=== PATIENT | female | born 1980 | race Caucasian/White ===

== ENCOUNTER 2025-03-19 09:13 | Outpatient (RCR) | payer MEDICARE, MEDICAID, SELFPAY ==
--- NOTE | 2025-03-19 09:05 | BH.SGPN.GN ---
Behaviors/Verbalizations/Mental Status: [] Pt alert and oriented, neatly dressed and groomed. Eye contact good. Motor activity appropriate. Speech within normal limits. Affect labile-quick to tears and laughter, mood depressed and agitated. Thoughts linear, logical, no signs of hallucinations or delusions. Reviewed pt?s symptom tracker, no risk for suicidal ideation, plan, or intent 03/19/25. Client Response/Progress/Benefit: []Pt was an active participant in group discussions. Attentive. Able to identify mental health wins including showing up to IOP today even though she was reluctant at first. Pt stated that she had to trust her family, but that has been challenging lately. ?Pt's stressor today is ?so much has happened to me lately? which includes the loss of her mother and recent manic episode. The group offered pt encouragement and emotional support which pt reported was helpful. Pt is feeling stressed? this morning. Pt receptive to feedback from peers which pt reported was helpful. Progress noted. Benefited from group support, encouragement, and feedback. Will continue IOP tx to prevent decompensation, improve daily functioning, and gain healthy coping skills. ??? Narrative Note: []
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
--- NOTE | 2025-03-19 10:31 | BH.DR.ITP ---
Initial Treatment Plan Patient Information Visit Information: ADMISSION DATE: EXPECTED LOS: 6-8 weeks Diagnoses:: Bipolar 1, hx ptsd Problems/Symptoms Problem #1:: Bipolar disorder Symptom:: restless with decreased need for sleep, flight of ideas, easily distracted with difficult concentration, and risky behaviors like reckless driving Problem #2:: Hx PTSD Symptom:: historical, denies current nightmares or flashbacks
[2025-03-19 10:57] VITALS: BP 122/83; PULSE 68
--- NOTE | 2025-03-19 14:33 | BH.MTP ---
Master Treatment Plan Patient Information Program Physician:: Dr. Kitty Johnson Primary Therapist:: FABIAN Hunter Psychiatric Diagnoses Psychiatric Diagnoses:: Diagnosis #1:: Bipolar disorder, current episode manic without psychotic features, unspeci Diagnosis #2:: PTSD Diagnosis Code(s):: F31.1 Estimated LOS Estimated LOS (in weeks):: 6 Problem/Goal #1 Problem/Goal #1 Stated Goal:: Achieve controlled behavior, moderated mood, more deliberative speech and thought process, and a stable daily activity pattern. Client will also increase mood stability, reduce depression AEB self-report and reduction of scores of the bipolar and depression domain on the DSM-5 cross-cutting scales. Description of Barriers: hx of non-compliance with medications for bipolar, stigma associated with Bipolar diagnosis. Hx of self-medication through alcohol and marijuana. Functional Impact: Recent manic episode led to inpatient hospitalization and residing with father now Goal Relevant Strengths/Supports: Motivated to make changes to return to independent living Objectives Objective #1: Stated Objective: Client will increase self-awareness of bipolar illness through education from individual therapist as well as educational handouts. Interventions: Through individual and group counseling will provide education on criteria for Bipolar, define yazmin/hypomania, identify warning signs to yazmin, and develop an individualized and written Bipolar management plan for patient Discharge Criteria: Complete Bipolar management plan. Target Date: 05/03/25 Review Date: 04/18/25 Objective #2: Stated Objective: Client will identify at least 2-3 negative self-talk messages used to reinforce negative core beliefs and low self-worth and replace thoughts with more realistic messages. Interventions: Through individual and group counseling will assist client in identifying, challenging, and replacing dysfunctional thoughts with positive, more realistic thoughts. Therapist will use CBT and DBT techniques to help client gain awareness of thinking errors and learn how to more effectively handle negative thoughts that reinforce unhealthy coping skills Discharge Criteria: Will be able to identify 2-3 negative self-talk messages and identify 2 strategies to reframe/challenge these thoughts. Target Date: 05/03/25 Review Date: 04/18/25 Problem/Goal #2 Problem/Goal #2 Stated Goal:: Stabilize anxiety level while increasing ability to function on a daily basis AEB self-report and decreased scores on the anxiety domain of the DSM-5 cross-cutting scales Description of Barriers: hx of non-compliance with medications for bipolar, stigma associated with Bipolar diagnosis. Hx of self-medication through alcohol and marijuana. Functional Impact: Recent manic episode led to inpatient hospitalization and residing with father now Goal Relevant Strengths/Supports: Motivated to make changes and return to independent living Objectives Objective #1: Stated Objective: Client will learn and implement 4-5 calming skills to reduce overall anxiety and manage anxiety. Interventions: Through individual and group counseling will help client increase awareness of anxiety triggers as well as teach client various calming and mindfulness strategies to promote emotional regulation and reduction of anxiety. Therapist will encourage client to implement/practice healthy coping skills on a regular basis Discharge Criteria: Able to identify and consistently implement 4-5 calming skills. Target Date: 05/03/25 Review Date: 04/18/25
--- NOTE | 2025-03-19 14:34 | BH.COMM_ITS ---
Communication Note Communication with Client Communication Note: Met with pt to complete paperwork, update any changes to pre-admission screening, and complete risk assessment. Low risk on [place] Suicide Screening, however she does report prior fleeting suicidal ideations with thougyhts of overdosing in 2020. Denies any since. Hx of 2 previous psych admits. Reports no previous suicide attempts or self-interrupted attempts. Denies active SI, plan, or intent. Protective factors. Future-motivated. Able to contract for safety. Medication compliant. No access to guns. Does not present as imminent risk currently however based on hx of impulsivity and yazmin she presents high risk for yazmin with psychosis during significant situational stressors. Consulted with Dr. Johnson regarding current symptoms with orders to admit to IOP with dx of F31.1.
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
--- NOTE | 2025-03-20 09:00 | BH.SGPN.GN ---
Behaviors/Verbalizations/Mental Status: [] Client alert and oriented, casual appearance. Eye contact good. Motor activity appropriate. Speech within normal limits. Affect congruent, mood euthymic and anxious. Thoughts linear, logical, no signs of hallucinations or delusions. Reviewed client's symptom tracker, no risk for suicidal ideation, plan, or intent. Client Response/Progress/Benefit: [] Client responded well to session AEB listening to others and sharing thoughts/feelings. Client reported mental positive as being able to use healthy coping skill of taking a break from her family walking around her family's basement as a way to calm herself when feeling angry. Client stated additional mental positive as being able to sit down with her family to express how she is feeling like she needs to have some more space because at times she feels suffocated with their support. Client stated that the transition went really well because her family was able to communicate how they were feeling as well. Client noted current stressor as being able to keep up with taking her medications and attending therapy consistently. Appeared to benefit from support from peers. Will continue IOP tx to improve daily functioning, maintain mood stability, and prevent decompensation. Narrative Note: []
--- NOTE | 2025-03-20 10:00 | BH.SGPN.GN ---
Behaviors/Verbalizations/Mental Status: []Pt alert and oriented, neatly dressed and groomed. Eye contact good. Motor activity appropriate. Speech within normal limits. Affect congruent, mood euthymic. Thoughts linear, logical, no signs of hallucinations or delusions. Client Response/Progress/Benefit: [] Pt was an active participant in group discussion and experiential activity. Attentive during psychoeducation on resilience and provided input throughout. Participated in interactive discussion with peers on the definition of resilience and where it comes from. Group identified that resiliency can be impacted by; past experiences, upbringing, and personality traits. Able to relate experiential activity of group juggle to topics of resilience. Worked with peers in small group in which they identified factors that contribute to resilience and did well providing ideas. Benefited from increased awareness of resilience and the factors that contribute to building resilience. Will continue in IOP tx to prevent decompensation, reduce negative thinking patterns, and improve daily functioning. Narrative Note: []
--- NOTE | 2025-03-20 11:00 | BH.SGPN.GN ---
Behaviors/Verbalizations/Mental Status: [] Eye contact is good. Motor activity is appropriate. Appearance is casual. Speech is Appropriate. Mood is anxious. Affect is congruent. Thoughts are linear and logical. No evidence of psychosis. Client Response/Progress/Benefit: [] Pt responded well to session AEB completing the resilience worksheet provided. Pt actively participated in the discussion and worked cooperatively with group to identify strategies to enhance each of the components discussed. Pt reports belief they already use resilience trait of ?self-awareness and keeping things in perspective? Pt was able to identify areas related to resilience to focus on in the future. Pt seemed to benefit from discussing strategies for improving personal resilience and identifying resilience traits Pt already possesses. Will continue IOP tx to stabilize mood, prevent decompensation/re-admission to psych unit, improve functioning, and to increase healthy coping. Narrative Note: []
--- NOTE | 2025-03-22 09:00 | BH.SGPN.GN ---
Behaviors/Verbalizations/Mental Status: [] Pt alert and oriented, neatly dressed and groomed. Eye contact good. Motor activity appropriate. Speech within normal limits. Affect congruent, mood hopeful. Thoughts linear, logical, no signs of hallucinations or delusions. Reviewed pt?s symptom tracker, no risk for suicidal ideation, plan, or intent 03/22/25. Client Response/Progress/Benefit: []Pt was an active participant in group discussions. Attentive. Able to identify mental health wins including asking for help from her son, spending time with her dad and son, and benefitting from IOP so far. Pt's stressor today is ?I?m going to a wedding with my dad this weekend and my mom who was supposed to go.? The group offered pt encouragement and emotional support which pt reported was helpful. Pt is feeling content this morning. Pt receptive to feedback from peers. Progress noted. Benefited from group support, encouragement, and feedback. Will continue IOP tx to increase distress tolerance skills, promote mood stability, and prevent decompensation. Narrative Note: []
--- NOTE | 2025-03-22 11:15 | BH.SGPN.GN ---
Behaviors/Verbalizations/Mental Status: [] Client alert and oriented, casually dressed and groomed. Eye contact good. Motor activity appropriate. Speech within normal limits. Affect congruent, mood euthymic. Thoughts linear, logical, no signs of hallucinations or delusions. Client Response/Progress/Benefit: [] Pt engaged in session AEB client listening attentively to peers and providing input. Attentive and contributed to discussion as group worked on identifying thought patterns and behaviors that negatively effect self-confidence. Pt identified behaviors that effect their confidence as: self-judgement and comparisons. Engaged in confidence building activity and worked with the group to identify strategies for improving self-confidence. Pt identified plans to begin daily affirmations as a means of improving own self-confidence. Benefited from increased education on self-confidence building skills. Pt will continue IOP tx to increase self-confidence, improve mood stability, and prevent decompensation. Narrative Note: []
--- NOTE | 2025-03-25 09:00 | BH.SGPN.GN ---
Behaviors/Verbalizations/Mental Status: [] Client alert and oriented, casual appearance. Eye contact good. Motor activity appropriate. Speech within normal limits. Affect congruent, mood euthymic. Thoughts linear, logical, no signs of hallucinations or delusions. Reviewed client's symptom tracker, no risk for suicidal ideation, plan, or intent. Client Response/Progress/Benefit: [] Client responded well to session AEB listening to others and sharing thoughts/feelings. Client reported mental positive as following through with her goal of taking her medications consistently, which she noted is something she struggled with in the past. Client reported additional mental positive as sticking with her changes and positive communication with her dad. Client noted she is trying to focus on being more open and communicative to her dad which she has noted to be helpful. Client stated current stressor as knowing she needs to slow down and not make rash decisions on trying to move out of her dad's house right now. Appeared to benefit from support from peers. Will continue IOP tx to stabilize moods, improve daily functioning, and challenge distortions. Narrative Note: []
--- NOTE | 2025-03-25 10:10 | BH.SGPN.GN ---
Behaviors/Verbalizations/Mental Status: [] Eye contact is good. Motor activity is appropriate. Appearance is casual. Speech is Appropriate. Mood is anxious. Affect is congruent. Thoughts are linear and logical. No evidence of psychosis. Reviewed daily check in sheet and no reports of suicidal ideations or intent. Client Response/Progress/Benefit: [] Client responded well to session, contributing to discussion and engaged during the activity. Attentive during discussion on the quote and psychoeducation. Group identified the benefits of change as well as common emotions associated with change. Group choose five emotions associated with change (lonely, exhausted, confident, fearful,and overwhelmed) and discussed how these emotions can be both positive (motivate one to change) and also be an obstacle to change. Benefited from increased awareness and understanding of emotions, benefits, and barriers related to change. Will continue IOP tx to prevent decompensation/re-admission to psych unit, increase healthy coping, and improve functioning. Narrative Note: []
--- NOTE | 2025-03-25 11:10 | BH.SGPN.GN ---
Behaviors/Verbalizations/Mental Status: []Client alert and oriented, casually dressed and groomed. Eye contact good. Motor activity appropriate. Speech within normal limits. Affect congruent, mood sad. Thoughts linear, logical, no signs of hallucinations or delusions. Client Response/Progress/Benefit: [] Pt responded well to session, attentive. Did well to process activity and work with group to relate the strategies used to overcome barriers in the activity to managing change in own life. Pt identified a change would like to make is being ?kinder to my family.? Pt stated currently in preparation. Reported she is struggling with having awareness of all her triggers and not shutting down. Appeared to benefit from identifying a small goal to work towards. Pt will continue IOP tx to prevent decompensation, improve self-worth, and improve daily functioning. Narrative Note: []
--- NOTE | 2025-03-26 09:05 | BH.SGPN.GN ---
Behaviors/Verbalizations/Mental Status: [] Eye contact is good. Motor activity is appropriate. Appearance is casual. Speech is Appropriate. Mood is anxious. Affect is congruent. Thoughts are linear and logical. No evidence of psychosis. Reviewed daily check in sheet and no reports of suicidal ideations or intent. Client Response/Progress/Benefit: [] Pt was an active participant in group discussions. Attentive. Shared with group that she had urge to isolate yesterday however challenged her thoughts. Instead of isolating she choose to be honest and communicate effectively with her father. This resulted in shared time together and improved relationship. Overall she feels that her mental health is ? improving? since discharge from psych unit. Benefited from group support, encouragement, and feedback. Will continue in IOP to prevent decompensation/re-admission to psych unit, stabilize mood, and improve functioning. Narrative Note: []
--- NOTE | 2025-03-26 10:15 | BH.SGPN.GN ---
Behaviors/Verbalizations/Mental Status: []Pt alert and oriented, neatly dressed and groomed. Eye contact good. Motor activity appropriate. Speech within normal limits. Affect congruent, mood content, anxious. Thoughts linear, logical, no signs of hallucinations or delusions. Client Response/Progress/Benefit: [] Pt participated during the group discussion, providing input and remaining attentive during psychoeducation. Participated in experiential activity. Pt contributed during interactive discussion on the consequences of unhealthy expression of emotions. Worked with group to identify several consequences which included hurting relationships and isolating oneself. Contributing during interactive discussion on common potholes to effectively communicating. Pt was able to relate and make connections between the experiential activity and the overall topic, managing emotions through activity by focusing on what other?s arwe saying and deep breathing. Benefited from increased awareness of how stress and emotions can impact one's ability to communicate. Will continue in IOP to prevent decompensation, increase emotional regulation skills, and improve daily functioning. Narrative Note: []
--- NOTE | 2025-03-26 11:15 | BH.SGPN.GN ---
Behaviors/Verbalizations/Mental Status: [] Eye contact is good. Motor activity is appropriate. Appearance is casual. Speech is Appropriate. Mood is depressed. Affect is congruent. Thoughts are linear and logical. No evidence of psychosis. Client Response/Progress/Benefit: [] Client engaged in session AEB client listening attentively to peers and providing input. Attentive during psychoeducation on 4 zones of regulation. Pt able to identify feelings and behaviors for each zone. Pt identified coping skills one can use to support self in each zone. Pt stated belief that pt is in the blue zone today. Pt reports walk, journal, and give self-credit to move herself closer to the green zone. Benefited from increased education on zones of regulation or stages of alertness for emotions and healthy coping skills to use for each zone. Pt will continue IOP tx to prevent decompensation/re-admission to psych unit, stablize mood, and improve functioning.
--- NOTE | 2025-03-28 13:25 | BH.MDN ---
Multi-Disciplinary Note Note 45-min Individual: Time Started:: 09:45 Date: 03/28/25 Purpose of session/treatment goals addressed:: Purpose of session was to assess pt adjustment to IOP tx as well as begin working on small goal setting for improving independence and self-confidence. Eye Contact:: Good Motor Activity:: Restless Appearance:: Neat and Casual Speech:: Pressured Mood:: Euthymic and Anxious Affect:: Congruent Thoughts:: Linear, Logical and No evidence of hallucinations/delusions noted Staff Interventions:: psychoeducation on: (maintenance cycle and behavior activation), CBT techniques, rapport building, strengths perspective and goal setting Client Response:: Pt receptive of session, actively engaged throughout. Reports that despite some initial hesitancy, she is enjoying the IOP program thus far and finds the shared environment to be beneficial. Noted connecting to fellow group participants and feeling less alone in her mental health struggles. Went on to describe adjusting somewhat well to living back at home with her father after living in [place] for the past 20+ years. Noted that they are both used to living independently and relearning how to live with someone else has been a transition. Explained that her 18 year old son had been ?doing his own thing? the past few years, meaning pt was often home alone throughout the day. Some feelings of being a burden as pt worries about her father judging her if she is not doing something productive and reports discomfort in needing financial support from him at this time. Noted that she does not know what to do with herself during the day when not attending IOP tx and struggles with being independent since her episode of psychosis in early January of this year. Pt described fear that she will get lost or confused and that people will juvenile court judge her which has kept her from leaving the house without her father. Does indicate increased confusion starting around mid-day since the episode but has seen some improvement in the last 2-3 weeks. Expressed wanting to improve self-confidence levels and ?figure out who I am?. Noted that she defined herself as being a mother for the last 18 years and feels she is now in the ?empty nesting stage?, resulting in pt feeling unsure of what she enjoys or who she is anymore. Reports not knowing ?where to start? but would like to explore different possible hobbies. Plans to create a list of possible hobbies/activities she might be interested in. Additionally reports that she has a [employer] fitness gym membership but has been too anxious to go to the location in the areas, as pt fears she will not be able to find it. Receptive of discussion on opposite action and pt identified several benefits exercise has had on her mental health in the past. Goal to practice driving there this weekend and will build up to going inside. Risks/Concerns:: None noted. Pt denies SI, plan, or intent as of this date 03/28/25. Pt does note ongoing issues with confusion since most recent episode of yazmin with psychosis in early January. Pt scheduled for follow-up with program psychiatrist tomorrow who will address these concerns further. Progress Toward Goals/Plan:: Progress noted. Pt no longer reporting sx of paranoia or losing chunks of time. Does admit to ongoing issues with confusion mid-day which will be addressed in follow-up psychiatry appointment tomorrow. Reports mood is stabilizing and she is finding IOP tx to be helpful. Improved motivation levels and increased sense of hope for the future. Reports improving communication with dad, but continues to struggle with boundary setting and feeling like a burden. Ongoing issues with negative self-talk, self-doubt, and unrealistic expectations of self. Pt recommended continued IOP tx to promote continued mood stability, increase confidence and independence, as well as prevent decompensation. Time Stopped:: 09:45
--- NOTE | 2025-03-29 09:05 | BH.SGPN.GN ---
Behaviors/Verbalizations/Mental Status: [] Eye contact is good. Motor activity is appropriate. Appearance is casual. Speech is Appropriate. Mood is euthymic. Affect is full. Thoughts are linear and logical. No evidence of psychosis. Reviewed daily check in sheet and no reports of suicidal ideations or intent. Client Response/Progress/Benefit: [] Pt participated at times during the group discussions. Attentive. Limited distress noted on symptom tracker. Shared with group that she has made a goal to decrease her alcohol consumption and identified how this will be beneficial to her mental health. Working on being vulnerable and honest with support which has helped improve relationships. Progress noted however feeling depressed today. Benefited from group support, encouragement, and feedback. Will continue in IOP to prevent decompensation, stabilize mood, and improve functioning. Narrative Note: []
--- NOTE | 2025-03-29 10:07 | PCM.BH.PN ---
Intake Vital Signs 03/19/25 11:22 03/29/25 10:09 Height 5 ft 7 in 5 ft 7 in Weight: 218 lb BP 122/83 H Pulse 68 BH Intake Visit Reasons: Medication Allergies No Known Allergies Allergy (Verified 03/19/25 10:21) Medications ?Medication ?Instructions ?Recorded ?Confirmed ?Type cetirizine 10 mg tablet (24Hour 10 mg PO DAILY PRN allergy symptoms 03/19/25 03/19/25 History Allergy) cholecalciferol (vitamin D3) 25 25 mcg PO DAILY 03/19/25 03/19/25 History mcg (1,000 unit) capsule clonazepam 1 mg tablet (Klonopin) 1 mg PO QHS PRN sleep 03/19/25 03/19/25 History cyclobenzaprine 10 mg tablet 10 mg PO TID PRN muscle spasm 03/19/25 03/19/25 History dextroamphetamine-amphetamine ER 25 mg PO BID 03/19/25 03/19/25 History 25 mg 24hr capsule,extend release (Adderall XR) Held on 03/19/25. Instructions: has not been taking since January 2025 fluoxetine 10 mg capsule 10 mg PO DAILY 03/19/25 03/19/25 History hydroxyzine pamoate 25 mg capsule 25 mg PO 4X/DAY PRN PRN anxiety 03/19/25 03/19/25 History (Vistaril) ibuprofen 200 mg tablet 200 - 600 mg PO TID PRN pain 03/19/25 03/19/25 History olanzapine 20 mg tablet 20 mg PO QHS 03/19/25 03/19/25 History oxcarbazepine 300 mg tablet 300 mg PO BID 03/19/25 03/19/25 History Held on 03/19/25. Instructions: MD Ordered ropinirole 0.5 mg tablet 0.5 - 1 mg PO QHS PRN restless 03/19/25 03/19/25 History Held on 03/19/25. leg(s) Instructions: does not currently have trazodone 50 mg tablet 50 mg PO QHS PRN sleep 03/19/25 03/19/25 History Held on 03/19/25. Instructions: MD Ordered ubrogepant 100 mg tablet (Ubrelvy) 100 mg PO DAILY PRN PRN migraine 03/19/25 03/19/25 History Held on 03/19/25. headache Instructions: does not currently have HPI () History of Present Illness History provided by: patient Chief complaint: Brain fog HPI: Cyndie Mueller is a 44y/o female with a history of bipolar 1 and PTSD who is seen today for follow up evaluation as part of IOP programming. Patient reports that she been having some spaced out sensation leading to having difficulty with processing information and participating in group. Currently taking fluoxetine 10 mg and olanzapine 20 mg which she started around the middle of January. Trying to limit taking hydroxyzine which she thinks may be contributing to her sedation/brain fog. Had also been taking trileptal in the past but currently is holding. Does also admit to having chronic fatigue syndrome. Denies any significant depression at this time. Anxiety has been present but is manageable. Is taking all medications at bedtime. Has stopped taking spironolactone and doxycycline for skin issues that she had been having in recent past. Sleep has been doing largely well getting about 7-10 hours of sleep. Energy levels close to baseline. Continues to have some significant stress in living with father after the of her mother early in January. Denies any acute SI HI or AVH. Review of systems () Constitutional Denies: fever(s), chills, change in weight or fatigue Eyes Denies: change in vision or blurry vision Ears, Nose, Mouth, Throat Denies: throat pain, neck pain or change in hearing Cardiovascular Denies: chest pain, palpitations or dyspnea Respiratory Denies: dyspnea, cough or wheezing Gastrointestinal Denies: abdominal pain, nausea, vomiting, diarrhea or constipation Genitourinary Denies: dysuria or urinary frequency Musculoskeletal Denies: back pain, neck pain, joint pain or muscle weakness Integumentary/Breast Denies: rash or new lesions Neurological Reports: confusion; Denies: headache(s) or dizziness Endocrine Denies: fatigue or excessive sweating Hematologic/Lymphatic Denies: easy bruising or easy bleeding Allergic/Immunologic Denies: wheezing Exam Mental Status Exam- Psych () Appearance casually dressed, no apparent distress and well kempt Attitude cooperative Activity/Motor Behavior psychomotor slowing Speech regular volume and slow (Mildly) Mood other (Spaced out) Affect blunted Thought Process linear, logical and other (Somewhat slow in processing speed) Thought Content no delusions and no hallucinations Suicidal Ideation none Homicidal Ideation none Attention intact Concentration intact Sensorium/Orientation awake and alert Memory/Cognition other (Fair however believes impacted by medication) Insight fair Judgement fair Exam () Constitutional Documenting provider has reviewed patient's vital signs: yes Common normals: no acute distress, patient oriented x3 and alert General appearance: well developed Neuro Common normals: patient oriented x3 Sensorium/orientation: alert Gait (neuro): normal gait Assessment & Plan () Assessment & Plan (1) Bipolar disorder, current episode manic without psychotic features, unspecified: Plan: - Encouraged to break her olanzapine into 10 mg twice daily rather than taking all at bedtime. Has been experiencing some significant brain fog during the day and ideally can mitigate this by splitting dosing. Given a history of suspected yazmin within the last month am reticent to reduce medication at this time secondary to fear of decompensation. If she should continue to demonstrate psychiatric stability could consider reduction of overall medication burden. ? Continue fluoxetine as previously prescribed (2) PTSD (post-traumatic stress disorder): Problem Details: Historical Plan: - See above Medications: On Hold oxcarbazepine Hold Comment: Ordered 300 mg PO BID trazodone Hold Comment: Ordered 50 mg PO QHS PRN sleep dextroamphetamine-amphetamine 25 mg ER Hold Comment: has not been taking since January 2025 25 mg PO BID 0RF ropinirole Hold Comment: does not currently have 0.5 - 1 mg PO QHS PRN restless leg(s) ubrogepant Hold Comment: does not currently have 100 mg PO DAILY PRN PRN migraine headache Visit Details Comments: Spent a total of [ ] minutes on the date of the service which included [ ]. Charges/Coding Behavior Health Behavior Health EST Pt E/M: 39831 Est Pt Level IV
--- NOTE | 2025-03-29 10:10 | BH.SGPN.GN ---
Behaviors/Verbalizations/Mental Status: [] Eye contact is good. Motor activity is appropriate. Appearance is casual. Speech is Appropriate. Mood is anxious. Affect is congruent. Thoughts are linear and logical. No evidence of psychosis. Client Response/Progress/Benefit: [] Pt semi engaged participant AEB listening to others, engaging in activity, and providing feedback at times. Attentive during psychoeducation that provided insight into obstacles that impede mental wellness. Pt shared with group current mental health reality and desired mental health reality. Identified barriers to desired reality include: Poor boundaries, negative thinking, and fear of failure. Benefited from taking look at current mental health state and obstacles for progress. Pt to continue IOP tx to improve mood stability, improve confidence, and prevent decompensation.
--- NOTE | 2025-03-29 11:10 | BH.SGPN.GN ---
Behaviors/Verbalizations/Mental Status: [] Eye contact is good. Motor activity is appropriate. Appearance is casual. Speech is Appropriate. Mood is euthymic. Affect is congruent. Thoughts are linear and logical. No evidence of psychosis. Client Response/Progress/Benefit: [] Pt was an engaged participant in group discussion and activity. Worked with group to identify strategies to help overcome barriers and obstacles to desired reality. Group developed strategies for the common barriers. Identified personal barriers to desired reality and choose one obstacle to work on. Pt stated wanting to work on barrier of fear of failure by looking at the evidence against her fear. Pt seemed to benefit from increased repertoire of healthy coping skills/strategies to overcome common barriers to moving forward. Pt is to continue IOP increase functioning, promote mood stability, and prevent decompensation. Narrative Note: []
== END 2025-04-01 23:59 ==
LOC: BHIOP 09:13
PROVIDERS: Referring Provider Internal Medicine; Visit Provider Internal Medicine
DX: F31.10 Bipolar disorder, current episode manic without psychotic features, unspecified (principal); F43.10 Post-traumatic stress disorder, unspecified
CPT/HCPCS: S9480; 90834; 90853

== ENCOUNTER 2025-04-02 07:18 | Outpatient (RCR) | payer MEDICARE, MEDICAID, SELFPAY ==
--- NOTE | 2025-04-02 09:00 | BH.SGPN.GN ---
Behaviors/Verbalizations/Mental Status: [] ?Eye contact is good. Motor activity is appropriate. Appearance is casual. Speech is Appropriate. Mood is agitated. Affect is congruent. Thoughts are linear and logical. No evidence of psychosis. Reviewed daily check in sheet and no reports of suicidal ideations or intent. Client Response/Progress/Benefit: [] ?Pt was an active participant in group discussions. Attentive. Did well to identify 2 mental health wins including managing to complete her homework to drive past [employer]. Shared not quite feeling ready to go in yet though. Did note she has gone to workout at the gym in her father's development which is progress. Additional win noted as making plans to meet up with some old friends next week. Expressed excitement and anxiety given the length of time since she has seen them. Current stressor noted as her father's neighbor reporting her dog to the home line haul owner operator's association. Pt reports that she is trying to remind herself that she was approved to have her dog stay for the time being and just ignore the neighbor's comments. Progress noted. Benefited from group support, encouragement, and feedback. Will continue in IOP to prevent decompensation, promote mood stability, and increase healthy coping consistency. Narrative Note: []
--- NOTE | 2025-04-02 10:10 | BH.SGPN.GN ---
Behaviors/Verbalizations/Mental Status: []Pt alert and oriented, casually dressed and groomed. Eye contact good. Motor activity appropriate. Speech within normal limits. Affect congruent, mood content, calm. Thoughts linear, logical, no signs of hallucinations or delusions. Client Response/Progress/Benefit: [] Pt an active participant in group discussions on defining conflict (internal/external) and possible benefits to conflict. Attentive during psychoeducation on conflict styles (avoidant, accommodating, competing, cooperative) and engaged during group discussion in which peers identified the benefits and consequences to each conflict style. Pt identified that pt tends to be competing and avoidant. Pt shared she actually wants to try to be more accommodating with her dad because he is also competing. Benefited from increased awareness of the impact of conflict styles in mental health. Will continue in IOP tx to prevent decompensation, improve daily functioning, and reduce negative thinking patterns. ? Narrative Note: []
--- NOTE | 2025-04-02 11:15 | BH.SGPN.GN ---
Behaviors/Verbalizations/Mental Status: []Client alert and oriented, casually dressed and groomed. Eye contact good. Motor activity appropriate. Speech within normal limits. Affect congruent, mood anxious. Thoughts linear, logical, no signs of hallucinations or delusions. Client Response/Progress/Benefit: [] Pt engaged in session AEB contributing to discussion and engaging in small group. Attentive during discussion on strategies for more effectively managing conflict in personal life. Pt noted current conflict resolution style uses the most is avoidant, but noted she has been working on being more direct and collaborative with others. Pt participated in small group for activity and did well practicing how to manage conflict scenarios. Pt given handout on fair fighting rules and how to identify common conflict barriers. Pt indicated what needs improvement in conflict for them. Appeared to benefit from gaining strategies to help Pt better manage conflict. Will continue IOP tx maintain mood stability, promote healthy coping, and prevent decompensation. Narrative Note: []
--- NOTE | 2025-04-02 12:15 | BH.MDN_ITS ---
Multi-Disciplinary Note Note 30-min Individual: Time Started:: 12:00 Date: 04/02/25 Purpose of session/treatment goals addressed:: Purpose of session was to address treatment plan goal #1 obj # 1 & 2. Eye Contact:: Good Motor Activity:: Appropriate Appearance:: Neat and Casual Speech:: Appropriate Mood:: Dysthymic Affect:: Congruent Thoughts:: Linear, Logical and No evidence of hallucinations/delusions noted Staff Interventions:: thought challenging, motivational interviewing, psychoeducation on: (gratitude) and CBT techniques Client Response:: Pt responded well to session, open to meeting with therapist. Pt shared she recently reached out to a local friend to reconnect? however this friend is often ?flakey?, so pt is trying not to set her expectations too high. Pt went on to note that she did reach out to her best friend back in [place] which went well. Discussed feeling less lonely afterward and less irritable with her father as a result. Pt continues to struggle with knowing how to spend her time while re-adjusting to living in [place]. Reports that she did try doing a [id number] but did not find any enjoyment in it. Stated that she feels her medication continues to make her tired which is impacting her concentration, memory, and ability to be present. Does note slight improvement in confusion. Shared that she did challenge herself to use opposite action and get on her dad?s treadmill, which she reports feeling proud of herself for. Pt described seeing progress in her ability to communicate boundaries with her father as well, sharing an example of not drinking alcohol when he was having a glass of wine. Noted wanting to continue to work towards feeling more present and able to enjoy her daily life. Receptive of discussion on incorporating small moments of gratitude into her day to day life. Risks/Concerns:: Denies SI, plan or intent as of this date 04/02/25 Progress Toward Goals/Plan:: Progress noted. Pt reports reduced isolation and beginning to reach out more to local supports. Does have plans with friends next weekend. Pt is additionally reporting getting outside and exercising more which she is enjoying. Ongoing progress in maintaining healthy boundaries with her father while they navigate cohabitating. Pt reports ongoing frustrations with medication side effects which continues to be monitored given the s ignificance of pt most recent manic episode, changes should remain gradual, COntinues to endorse low motivation as well. Pt recommended continued IOP tx to improve mood stability, continue to monitor medication changes, and prevent decompensation. Time Stopped:: 12:34
--- NOTE | 2025-04-03 09:00 | BH.SGPN.GN ---
Behaviors/Verbalizations/Mental Status: []Pt alert and oriented, neatly dressed and groomed. Eye contact good. Motor activity appropriate. Speech within normal limits. Affect congruent, mood anxious. Thoughts linear, logical, no signs of hallucinations or delusions. Reviewed pt?s symptom tracker, no risk for suicidal ideation, plan, or intent 04/03/25. Client Response/Progress/Benefit: []Pt was an active participant in group discussions. Attentive. Able to identify mental health wins including using her skills to reduce anxiety about her stressor and coming to group today instead of avoiding because she was stressed this morning. Pt's stressor today is ?I lost something in the mail and I?m trying not to freak out.? The group offered pt encouragement and emotional support which pt reported was helpful. Pt is feeling content and anxious this morning. Pt receptive to feedback from peers. Progress noted. Benefited from group support, encouragement, and feedback. Will continue IOP tx to increase distress tolerance skills, promote mood stability, and increase self-compassion Narrative Note: []
--- NOTE | 2025-04-03 10:10 | BH.SGPN.GN ---
Behaviors/Verbalizations/Mental Status: [] Client alert and oriented, casually dressed and groomed. Eye contact good. Motor activity appropriate. Speech within normal limits. Affect congruent, mood dysthymic. Thoughts linear, logical, no signs of hallucinations or delusions. Client Response/Progress/Benefit: [] Pt engaged in session AEB client listening attentively to peers and providing input. Attentive and contributed to discussion as group worked on defining self-forgiveness and identifying mental health benefit. Identified benefits as: reduce guilt/shame, increase self-confidence, decrease negative self-talk, healthier relationships, ect. ?Worked in small groups to identify factors that can make self-forgiveness difficult. Pt identified a personal barrier to self-forgiveness. Benefited from increased education on self-forgiveness, benefits, and what effects it. Pt will continue IOP tx to improve mood stability, challenge negative thoughts, and prevent decompensation.
--- NOTE | 2025-04-03 11:15 | BH.SGPN.GN ---
Behaviors/Verbalizations/Mental Status: [] Client alert and oriented, casually dressed and groomed. Eye contact fair to good. Motor activity appropriate. Speech within normal limits. Affect congruent, mood depressed. Thoughts linear, logical, no signs of hallucinations or delusions. Client Response/Progress/Benefit: [] Pt engaged in session AEB client listening attentively to peers and providing input. Attentive during psychoeducation on the 4 R?s of Self-Forgiveness (Responsibility, Remorse, Yazidi, Renewal). Contributed to discussion as group worked on identifying strategies for improving ability to practice self-forgiveness. Reports wanting to practice thought challenging and starting small. Engaged in self-forgiveness activity and benefited from increased education on self-forgiveness building skills. Pt will continue IOP tx to improve mood stability, increase healthy coping repertoire, and prevent decompensation. Narrative Note: []
--- NOTE | 2025-04-04 09:05 | BH.SGPN.GN ---
Behaviors/Verbalizations/Mental Status: [] Eye contact is good. Motor activity is appropriate. Appearance is casual. Speech is Appropriate. Mood is euthymic. Affect is full. Thoughts are linear and logical. No evidence of psychosis. Reviewed daily check in sheet and no reports of suicidal ideations or intent. Client Response/Progress/Benefit: [] Pt participated when prompted. Attentive. Daily symptom tacker notes limited distress. Able to identify mental health wins and healthy habits. Continues to utilize appropriate skills such as self-care, behavioral activation, open communication, and being vulnerable which has been beneficial. Improved relationship with family. Feels that her mood is stabilizing however reports fatigue and memory issues which she attributes to medications. Progress noted. Benefited from group support, encouragement, and feedback. Will continue in IOP to prevent decompensation/re-admission to psych unit, stabilize mood, and improve functioning Narrative Note: []
--- NOTE | 2025-04-04 10:10 | BH.SGPN.GN ---
Behaviors/Verbalizations/Mental Status: [] Eye contact is good. Motor activity is appropriate. Appearance is casual. Speech is Appropriate. Mood is euthymic. Affect is congruent. Thoughts are linear and logical. No evidence of psychosis. Client Response/Progress/Benefit: [] Pt receptive to session AEB listening attentively to others and taking notes. Pt attentive and contributed throughout psychoeducation on the cognitive triangle and maintenance cycles. Pt engaged during group discussion reviewing the impact of daily activities and behaviors in either reinforcing unhealthy maintenance cycles and depression or assisting in reducing symptoms (?down? vs ?up? activities). Pt participated during interactive discussion in which pts identified their own common up activities (shower, dancing, body movement, pets) and down activities (isolation, avoidance, sad music, not taking meds).Identified an up activities she can complete today which was pet and walk dog. Appeared to benefit from increased awareness of current behaviors and impact these have on mental health. Will continue IOP to prevent decompensation/re-admission to psych unit, increase healthy coping, and improve functioning. Narrative Note: []
--- NOTE | 2025-04-04 10:10 | BH.SGPN.GN ---
Behaviors/Verbalizations/Mental Status: []Eye contact is fair. Motor activity is appropriate. Appearance is casual. Speech is Appropriate. Mood is anxious. Affect is congruent. Thoughts are linear and logical. No evidence of psychosis. Client Response/Progress/Benefit: [] Pt receptive to session AEB listening attentively to others and taking notes. Pt attentive and contributed throughout psychoeducation on the cognitive triangle and maintenance cycles. Pt engaged during group discussion reviewing the impact of daily activities and behaviors in either reinforcing unhealthy maintenance cycles and depression or assisting in reducing symptoms (?down? vs ?up? activities). Pt participated during interactive discussion in which pt identified their own common up activities (listen to music, move body, crafting) and down activities (stay in bed, ignore chores, isolation). Appeared to benefit from increased awareness of current behaviors and impact these have on mental health. Will continue IOP to prevent decompensation, improve mood stability, and improve coping.
--- NOTE | 2025-04-04 12:00 | BH.COMM ---
Communication Note Communication with Client Communication Note: Client discussed with this nurse at this time that she would like to see the psychiatrist regarding her confusion mid-day that continues. 03/29/25, Dr. Martell had her start splitting her Zyprexa dose to take 10mg twice daily. Client states her mid-day confusion does feel a little better since making that change, but states it is not where I want it to be. Discussed with Dr. Johnson client's complaints of continued confusion that has improved with changing Zyprexa timing and current daily medications (Zyprexa, Prozac, Doxycycline and aldactone) and Dr. Johnson suggested keeping medications the same at this time and giving them more time. Discussed this with client, client voices understanding.
--- NOTE | 2025-04-09 09:00 | BH.SGPN.GN ---
Behaviors/Verbalizations/Mental Status: [] Client alert and oriented, casual appearance. Eye contact good. Motor activity appropriate. Speech within normal limits. Affect congruent, mood content. Thoughts linear, logical, no signs of hallucinations or delusions. Reviewed client's symptom tracker, no risk for suicidal ideation, plan, or intent. Client Response/Progress/Benefit: [] Client responded well to session AEB listening to others and sharing thoughts/feelings. Client reported mental positive was being able to use opposite action and grounding skills when setting a boundary with her father. Reports feeling proud of herself for doing so and remaining firm with the boundary despite being challenged by her father on it. Additional win noted as taking a step to reach out to a realtor to begin looking for houses in the area. Shared this is also a stressor, but one she reminds herself is a healthy stressor. Appeared to benefit from support from peers. Will continue IOP tx to reinforce healthy coping skills, challenge distortions, maintain mood stability, and prevent decompensation. Narrative Note: []
--- NOTE | 2025-04-09 10:05 | BH.SGPN.GN ---
Behaviors/Verbalizations/Mental Status: []Pt alert and oriented, neatly dressed and groomed. Eye contact fair. Motor activity appropriate. Speech within normal limits. Affect constricted, mood anxious. Thoughts linear, logical, no signs of hallucinations or delusions Client Response/Progress/Benefit: [] Pt took notes and contributed to group discussions. Attentive during psychoeducation on growth mindset. Interactive group discussion on fixed mindset in which group verbalized their current fixed mindsets and how they affect their mental health. Pt shared common fixed mindset thoughts they have. Pt shared a personal fixed thought I'll always be like this.? Pt able to connect negative impact fixed thoughts have on functioning. Pt benefited from increased awareness of growth mindset and fixed thoughts and how fixed thoughts impact their mental health. Will continue IOP tx to promote mood stability, improve daily functioning, and prevent decompensation.
--- NOTE | 2025-04-09 11:10 | BH.SGPN.GN ---
Behaviors/Verbalizations/Mental Status: []Pt alert and oriented, neatly dressed and groomed. Eye contact good. Motor activity appropriate. Speech within normal limits. Affect congruent, mood dysthymic. Thoughts linear, logical, no signs of hallucinations or delusions. Client Response/Progress/Benefit: [] Pt was an active participant during activity and discussion. Pt did well to remain attentive and participate as group worked on identifying characteristics and benefits of adopting a growth mindset. Worked with fellow participants in reframing the example fixed thoughts into growth mindset thoughts. Pt worked on changing own fixed thought. Pt?s reframed thought was ?I can contribute and I do.? Pt attentive during discussion about different strategies that can help with fostering a growth mindset. Pt appeared to benefit from challenging own thoughts and engaging in the activity. Pt will continue IOP tx to increase self-confidence, reduce negative thinking patterns, and improve daily functioning. ? Narrative Note: []
--- NOTE | 2025-04-10 09:00 | BH.SGPN.GN ---
Behaviors/Verbalizations/Mental Status: []Pt alert and oriented, neatly dressed and groomed. Eye contact good. Motor activity appropriate. Speech within normal limits. Affect congruent, mood stressed. Thoughts linear, logical, no signs of hallucinations or delusions. Reviewed pt?s symptom tracker, no risk for suicidal ideation, plan, or intent 04/10/25. Client Response/Progress/Benefit: []Pt was an active participant in group discussions. Attentive. Able to identify mental health wins including setting boundaries with her dad without yelling and looking at houses for sale yesterday. ?Pt's stressor today is ?I have a busy weekend ahead, but I don?t mind busy.? The group offered pt encouragement and emotional support which pt reported was helpful. Pt is feeling content.? this morning. Pt receptive to feedback from peers. Benefited from group support, encouragement, and feedback. Progress noted. Will continue IOP tx to promote use of healthy coping skills, increase self-compassion, and improve daily functioning. Narrative Note: []
--- NOTE | 2025-04-10 11:15 | BH.SGPN.GN ---
Behaviors/Verbalizations/Mental Status: [] client alert and oriented, casually dressed and groomed. Eye contact good. Motor activity appropriate. Speech within normal limits. Affect congruent, mood anxious. Thoughts linear, logical, no signs of hallucinations or delusions. Client Response/Progress/Benefit: [] Client was an engaged participant throughout group AEB client providing input throughout discussion. Client contributed to the continued discussion of how people express anger as well as the underlying emotions of anger. Client participated in group activity that highlighted strategies to cope with anger. Group brainstormed healthy coping skills to help prevent anger and cope with it in the moment which included: mindfulness, deep breathing, journaling, going outside, and music. Client stated something she learned from today's group is the importance of reflection. Client appeared to benefit from brainstorming with the group potential strategies to manage anger in healthy ways. Recommended continued IOP to improve mood stability, increase healthy coping, and prevent decompensation.
--- NOTE | 2025-04-10 12:44 | BH.MDN ---
Multi-Disciplinary Note Note 30-min Individual: Time Started:: 10:36 Date: 04/10/25 Purpose of session/treatment goals addressed:: Purpose of session was to address ongoing medication concerns, as well as work on tx plan goal #1 obj #1 Eye Contact:: Good Motor Activity:: Appropriate Appearance:: Casual Speech:: Appropriate Mood:: Irritable Affect:: Congruent Thoughts:: Linear, Logical and Flight of ideas Staff Interventions:: thought challenging, strengths perspective, taught coping skills (DEAR MAN) and other (DBT Skills) Client Response:: Pt reports ongoing feelings of disconnection and difficulties understanding people. Described feeling as though she is in a daze and has had difficulties in concentrating on her conversations with others. Described visiting friends from college over the weekend and struggling to focus on the interactions or be present throughout. Pt stated that she became frustrated when trying to decipher a form while meeting with a realtor over the weekend. Pt explained that she plans to sell her house in [place] and get a smaller home in [place], but worries she will not be able to handle the process the way that she feels. Expressed frustrations that she believes her medications are numbing her which is increasing irritability as well. This has led to continued tensions in the relationship with her father as pt noticed she may be quicker to personalize small comments. Therapist assured pt that these concerns would be communicated with program psychiatrist and continue to be addressed. Pt receptive of discussion reviewing distress tolerance skills and effectively communicating her emotions to her father without escalating the situation to conflict. Reviewed [employer] DBT skill. Pt plans to discuss boundaries in her father?s involvement in the house buying process by sharing appreciated help but wanting the final decision to be her own. Risks/Concerns:: Pt denies SI, plan, or intent as of this date 04/10/25 Progress Toward Goals/Plan:: Some regression. Pt reports worsening mood and ability to regulate emotions due to ongoing medication issues. Described difficulties completing activities of daily living due to ongoing fatigue. Ongoing negative core beliefs that she needs to be successful to have worth which negatively impacts her relationship with her father as pt personalizes any perceived criticism. Has continues to challenge herself to recognize and challenge these thought distortions with limited success. Pt did report trying to continue to exercise despite fatigue. Recommended continued IOP tx to improve self-compassion, mood stability, and prevent decompensation. Time Stopped:: 10:57
--- NOTE | 2025-04-11 08:18 | PCM.BH.PN ---
Intake Vital Signs 03/29/25 10:09 04/11/25 08:21 Height 1.7 m 1.7 m Intake Visit Reasons: f/u bipolar d/o Allergies No Known Allergies Allergy (Verified 03/19/25 10:21) Medications ?Medication ?Instructions ?Recorded ?Confirmed ?Type cetirizine 10 mg tablet (24Hour 10 mg PO DAILY PRN allergy symptoms 03/19/25 03/19/25 History Allergy) cholecalciferol (vitamin D3) 25 25 mcg PO DAILY 03/19/25 03/19/25 History mcg (1,000 unit) capsule clonazepam 1 mg tablet (Klonopin) 1 mg PO QHS PRN sleep 03/19/25 04/04/25 History Held on 04/04/25. Instructions: not currently taking cyclobenzaprine 10 mg tablet 10 mg PO TID PRN muscle spasm 03/19/25 03/19/25 History dextroamphetamine-amphetamine ER 25 mg PO BID 03/19/25 03/19/25 History 25 mg 24hr capsule,extend release (Adderall XR) Held on 03/19/25. Instructions: has not been taking since January 2025 fluoxetine 10 mg capsule 10 mg PO DAILY 03/19/25 04/04/25 History hydroxyzine pamoate 25 mg capsule 25 mg PO 4X/DAY PRN PRN anxiety 03/19/25 03/19/25 History (Vistaril) ibuprofen 200 mg tablet 200 - 600 mg PO TID PRN pain 03/19/25 03/19/25 History olanzapine 20 mg tablet 10 mg PO BID 03/19/25 04/04/25 History oxcarbazepine 300 mg tablet 300 mg PO BID 03/19/25 03/19/25 History Held on 03/19/25. Instructions: MD Ordered ropinirole 0.5 mg tablet 0.5 - 1 mg PO QHS PRN restless 03/19/25 03/19/25 History Held on 03/19/25. leg(s) Instructions: does not currently have trazodone 50 mg tablet 50 mg PO QHS PRN sleep 03/19/25 03/19/25 History Held on 03/19/25. Instructions: Ordered ubrogepant 100 mg tablet (Ubrelvy) 100 mg PO DAILY PRN PRN migraine 03/19/25 03/19/25 History Held on 03/19/25. headache Instructions: does not currently have doxycycline hyclate 20 mg tablet 20 mg PO BID 04/04/25 04/04/25 History spironolactone 100 mg tablet 100 mg PO DAILY 04/04/25 04/04/25 History (Aldactone) spironolactone 50 mg tablet 50 mg PO DINNER 04/04/25 04/04/25 History (Aldactone) HPI () History of Present Illness History provided by: patient Chief complaint: Foggy and hard time concentrating HPI: -Current psychiatric medications: Fluoxetine 10 mg daily, olanzapine 10 mg twice a day -SUBJECTVE: Feels somewhat better w/ splitting zyprexa, slightly less confusion but still spacey and has a difficult time even processing what people say. She notes she is not getting close to the parking lot anymore but still having a hard time functioning. Sleeping well, 10 hours at night. Denies any AH/VH, no SI/HI. Reports doing well on the Prozac with no concerns. Notes she will be establishing for outpatient follow-up with Dr. Martell in June. Developmental History Developmental History: MARITZA is the [ ORDER]. The pt was born and raised in [ ]. Education level completed [ ]. Pt describes his/her childhood as [ ]. Exam Mental Status Exam- Psych () Appearance casually dressed, adequately groomed and no apparent distress Attitude cooperative and calm Activity/Motor Behavior psychomotor slowing (Present but improved from previous) Speech other (Improved word finding) Mood other (More euthymic) Affect other (Slightly increased range, still somewhat blunted) Thought Process other (More linear and goal oriented) Thought Content no delusions and other (Occasionally hears mumbling) Suicidal Ideation none Homicidal Ideation none Attention other (Slightly impared) Concentration other (Slightly repaired) Sensorium/Orientation awake and alert Memory/Cognition other (Some difficulty with recall) Insight questionable Judgement fair Assessment & Plan () Assessment & Plan (1) Bipolar disorder, current episode manic without psychotic features, unspecified: Plan: Patient is doing better with Zyprexa split but still having the fog, concentration, confusion impacting functioning, discussed decreasing a.m. dose of Zyprexa to 5 mg and keeping 10 at bedtime to see if this improved cognitive effects and patient agreeable. Will send in new prescription with 10 mg tabs. Did discuss that given patient's hospitalization and significant decline at the time that we will take time for her to slowly begin feeling better and counseled that medication changes may help some but some of his other symptoms may lag behind. Patient verbalized understanding. Medications: On Hold clonazepam Hold Comment: not currently taking 1 mg PO QHS PRN sleep Visit Details Comments: Spent a total of [ ] minutes on the date of the service which included [ ]. Charges/Coding Behavior Health Behavior Health EST Pt E/M: 10750 Est Pt Level IV
--- NOTE | 2025-04-11 09:00 | BH.SGPN.GN ---
Behaviors/Verbalizations/Mental Status: [] Eye contact is good. Motor activity is appropriate. Appearance is casual. Speech is Appropriate. Mood is euthymic. Affect is full. Thoughts are linear and logical. No evidence of psychosis. Reviewed daily check in sheet and no reports of suicidal ideations or intent Client Response/Progress/Benefit: [] Pt participated at times during group discussions. Attentive. Daily symptom tracker notes minimal distress. Able to identify mental health wins and healthy habits. According to pt she completed mental health goals and is planning to spend this weekend with support. She shared skills that have been most beneficial in the past few weeks. Along with skills she reports benefits from psychoeducation stating that she is ? soaking in? all the information in IOP. Benefited from group support, encouragement, and feedback. Will continue in IOP to prevent decompensation/re-admission to psych unit, increase healthy coping, and improve functioning. Narrative Note: []
--- NOTE | 2025-04-11 10:10 | BH.SGPN.GN ---
Behaviors/Verbalizations/Mental Status: [] Eye contact is good. Motor activity is appropriate. Appearance is casual. Speech is Appropriate. Mood is dysthymic. Affect is congruent. Thoughts are linear and logical. No evidence of psychosis. Client Response/Progress/Benefit: [] Client engaged participant at times during group session as evidenced by contributions during group discussions, appearing to listen to others, and taking notes. Client engaged in discussion about barriers that keep people from having difficult confrontations. Group identified potential reasons individuals avoid difficult conversations which included; feeling uncomfortable, reaction of others, fear, avoid conflict. Group also identified benefits to having crucial conversations. Pt identified things they do that impact their communication get defensive, poor body language. Client seemed to benefit from increased awareness and education about importance of having difficult conversations and recognizing the impact of avoiding such conversations. Client to continue IOP to prevent decompensation/re-admissino to psych unit, stabilize mood, and improve functioning. Narrative Note: []
--- NOTE | 2025-04-11 11:10 | BH.SGPN.GN ---
Behaviors/Verbalizations/Mental Status: []Pt alert and oriented, casually dressed and groomed. Eye contact good. Motor activity appropriate. Speech within normal limits. Affect congruent, mood distressed. Thoughts linear, logical, no signs of hallucinations or delusions. Client Response/Progress/Benefit: [] Pt was an active participant, engaged in activities and discussion. Pt able to identify ways they negatively contribute to crucial conversations and pt was engaged during psychoeducation of the different ways to build interpersonal effectiveness skills. Pt and peers practiced mirroring and active listening in partners. Group reviewed [employer] and used the handout to help map out how they would like a crucial conversation in their life to go. Pt identified talking to her supports for texting her too much while she is in IOP. Pt appeared to benefit from learning and practicing interpersonal effectiveness skills. Pt will continue IOP tx to increase distress tolerance, reduce negative thinking patterns, and increase self-compassion. Narrative Note: []
--- NOTE | 2025-04-11 14:18 | BH.TPR ---
Treatment Plan Review Demographics Date of Admission:: 03/19/25 Date of Treatment Plan Review:: 04/11/25 Admitting Diagnoses:: #1:: Bipolar disorder, current episode manic without psychotic features, unspeci Diagnosis #2:: PTSD Current Diagnoses:: #1:: Bipolar disorder, current episode manic without psychotic features, unspeci Diagnosis #2:: PTSD Patient Status Patient's Response to Treatment:: Pt has responded well to session AEB consistently attending IOP and engaging in both individual and group therapy sessions. Pt consistently completes homework provided from individual counseling. Pt contributes actively during group discussions, takes notes, appears to listen to others, and engages in group activities. Pt's overall DSM-5 scores have decreased by 68% since admission and she reports finding benefit from the coping skills so far. Status of Current Problems and Symptoms: Pt's symptoms have decreased significantly since admission and, but pt reports that she is continuing to struggle with grief and acceptance of living with her father. Pt reports that she is coping well so far, but these stressors are weighing on pt emotionally. Pt still has ongoing stressors with finances, grief, maintaining mood stability, and boundaries with her family. Progress Problem #1: Problem Name:: Mood Instability, depression. Status of Goals:: Complete with ongoing work encouraged. Pt's DSM-5 scores for depression have decreased by 50% since admission. Pt reports using opposite action, talking to healthy supports, and thought challenging. Pt is gaining more awareness of her triggers for yazmin and depression and typical responses. This is helping pt pick different responses to improve emotional regulation. Pt reports increased hope as a result. DSM-5 scores yazmin are reduced by 100% Team Recommendations:: Team recommends continued goals and objectives to reinforce skills and reduce symptoms. Team recommends pt continue working on combating distortions, using opposite action, and identifying how she wants to set boundaries with family. Problem #2: Problem Name:: Panic, anxiety, and ptsd. Status of Goals:: Complete with ongoing work encouraged. Pt's DSM-5 scores for anxiety have decreased by 67% since admission and symptoms of dissociation have decreased by 60%. Pt reports using grounding, self-talk, and spending time outdoors. She can identify several calming skills and is working to more consistently apply these skills. Team Recommendations:: Treatment team encourages pt to continue working on distress tolerance skills, verbalizing boundaries and setting boundaries, grounding skills, avoiding substances that make her emotional regulation worse, and practicing self-talk.
--- NOTE | 2025-04-16 09:02 | BH.SGPN.GN ---
Behaviors/Verbalizations/Mental Status: [] Client alert and oriented, casual appearance. Eye contact fair. Motor activity appropriate. Speech within normal limits. Affect congruent, mood euthymic and slightly anxious. Thoughts linear, logical, no signs of hallucinations or delusions. Reviewed client's symptom tracker, no risk for suicidal ideation, plan, or intent. Client Response/Progress/Benefit: [] Client responded well to session AEB listening to others and sharing thoughts/feelings. Client shared mental positive as going to her friend's [place] house in [place] to spend time away. Client stated additional positive as allowing herself to relax while in [place] with her friend which she found to be very rewarding. Client noted current stressor as having forgotten several things at her friend's house and they will have to figure out how to get those things back since it is in [place]. Appeared to benefit from support from peers. Will continue IOP tx to maintain mood stability, challenge distortions, and prevent decompensation. Narrative Note: []
--- NOTE | 2025-04-16 10:10 | BH.SGPN.GN ---
Behaviors/Verbalizations/Mental Status: []Pt alert and oriented, casually dressed and groomed. Eye contact good. Motor activity appropriate. Speech within normal limits. Mood is anxious. Affect is congruent. Thoughts linear, logical, no signs of hallucinations or delusions. Client Response/Progress/Benefit: [] Pt was an active?participant in group discussions and experiential activity. Worked with peers to identify benefits of healthy relationships which included; support, shared experiences, laughter, understanding, and perspective challenge. Group identified factors that lead to unhealthy relationships which included; not being a ?good space mentally,? trauma-bonding, poor communication, and manipulation/toxic behaviors. Pt reported she has experienced manipulation and that has led to second-guessing herself. Benefited from increased insight and awareness of benefits of healthy relationships and factors that contribute to unhealthy relationships. Will continue IOP to promote use of healthy coping skills, combat negative self-talk, and improve daily functioning. ?? Narrative Note: []
--- NOTE | 2025-04-16 11:00 | BH.SGPN.GN ---
Behaviors/Verbalizations/Mental Status: [] Pt alert and oriented, casually dressed and groomed. Eye contact good. Motor activity appropriate. Speech within normal limits. Mood anxious. Affect congruent. Thoughts linear, logical, no signs of hallucinations or delusions. Client Response/Progress/Benefit: [] Pt responded well to session, engaged and taking notes throughout. Worked with group to connect components of the experiential activity with characteristics of healthy and unhealthy relationships. Attentive during psychoeducation about characteristics of healthy, unhealthy, and abusive relationships. Pt reported she has some healthy traits and she wants to work on ?active listening and more frequent communication efforts with support? Appeared to benefit from identifying current healthy relationship attributes. Pt to continue IOP tx to prevent decompensation/re-admission to psych unit, stabilize mood, and improve functioning. ?
--- NOTE | 2025-04-18 09:00 | BH.SGPN.GN ---
Behaviors/Verbalizations/Mental Status: [] Client alert and oriented, casual appearance. Eye contact fair. Motor activity appropriate. Speech within normal limits. Affect congruent, mood irritable and anxious. Thoughts linear, logical, no signs of hallucinations or delusions. Reviewed client's symptom tracker, no risk for suicidal ideation, plan, or intent. Client Response/Progress/Benefit: [] Client responded well to session AEB listening to others and sharing thoughts/feelings. Client reported mental positive as advocating for her self with psychiatry because of the cognitive issues she keeps having. Client stated she does feel like her medication at times is negatively impacting her cognitive processing which she noted is extremely frustrating, but she stated it's been helpful to stand up for herself. Client reported additional mental health positive as continuing to communicate openly with her dad. Client noted current stressor as not feeling like things are right with her ability to comprehend things. appeared to benefit from support from peers. Will continue IOP tx to challenge negative thoughts, continue use of healthy coping skills, and prevent decompensation.
--- NOTE | 2025-04-18 09:31 | BH.MDN_ITS ---
Multi-Disciplinary Note Note 30-min Individual: Time Started:: 10:43 Date: 04/18/25 Purpose of session/treatment goals addressed:: Purpose of session was to address pt ongoing medication concerns and identify skills for managing her sx. Eye Contact:: Good Motor Activity:: Appropriate Appearance:: Neat and Casual Speech:: Appropriate Mood:: Irritable Affect:: Constricted Thoughts:: Linear, Logical and No evidence of hallucinations/delusions noted Staff Interventions:: motivational interviewing, CBT techniques and strengths perspective Client Response:: Pt irritable throughout session. Reports significant frustration with ongoing medication side effects impacting her mental health and self-confidence. Reports that due to ongoing feelings of ?fogginess? and poor concentration she is struggling with self-doubt and ?fear of doing things?. Explained fear that she will forget something important, make a mistake, or embarrass herself. Stated ?I feel like I?m wasting my time because I cant can?t retain any information?. Stated that if she does not see any improvements any time soon, she will discontinue the medication on her own. Therapist advised pt not to do so given the potential risks of abruptly discontinuing and ensured pt that her concerns would be communicated with program psychiatrist. Pt agreeable to waiting to speak with psychiatry before discontinuing. Went on to share that she otherwise is feeling more stable and ready to move forward with this next phase in her life. Planning to help her son move into his dorm and begin packing things in her home in [place] to prepare for her move. Reports coming to terms and beginning to accept that moving back to [place] is best for her mental health. Has been connecting with her [id number] more as well which she reports as beneficial. Expressed a desire to begin journaling once she feels more capable of concentrating. Risks/Concerns:: None noted. Pt denies SI, plan, or intent as of this date 04/18/25 Progress Toward Goals/Plan:: Progress limited as pt continues to report difficulties in consistent skill application due to continued medication side effects. Reports this has limited ability to reach out to others or apply skills such as journaling. Does report she has been reaching out to supports and walking daily. Pt reports that she does feel her mood is more stable and she is doing better to advocate for her needs with her father. Recommended continue IOP tx to improve mood stability, address medication concerns, and prevent decompensation. Time Stopped:: 11:03
--- NOTE | 2025-04-18 11:10 | BH.SGPN.GN ---
Behaviors/Verbalizations/Mental Status: [] Client alert and oriented, casually dressed and groomed. Eye contact good. Motor activity appropriate. Speech within normal limits. Affect constricted, mood euthymic. Thoughts linear, logical, no signs of hallucinations or delusions. Client Response/Progress/Benefit: [] Client responded well to session AEB taking notes and providing some input and examples throughout. Group discussed the different categories of coping skills which included distraction, emotional release, grounding, self-love, and thought challenging. Client created a coping skill menu identifying various skills to try in each category. Client?s coping skill menu included: watching tiktok, meditating, and pro and con lists. Appeared to benefit from increasing repertoire of healthy coping skills. Client will continue IOP tx to improve daily functioning, reduce negative thinking, and increase application of healthy coping skills. Narrative Note: [] Behaviors/Verbalizations/Mental Status: [] Client alert and oriented, casually dressed and groomed. Eye contact good. Motor activity appropriate. Speech within normal limits. Affect constricted, mood euthymic. Thoughts linear, logical, no signs of hallucinations or delusions. Client Response/Progress/Benefit: [] Client responded well to session AEB taking notes and providing some input and examples throughout. Group discussed the different categories of coping skills which included distraction, emotional release, grounding, self-love, and thought challenging. Client created a coping skill menu identifying various skills to try in each category. Client?s coping skill menu included: watching tiktok, meditating, and pro and con lists. Appeared to benefit from increasing repertoire of healthy coping skills. Client will continue IOP tx to improve daily functioning, reduce negative thinking, and increase application of healthy coping skills. Narrative Note: []
--- NOTE | 2025-04-19 08:03 | PCM.BH.PN ---
Intake Vital Signs 03/29/25 10:09 04/11/25 08:21 04/19/25 08:03 Height 5 ft 7 in 5 ft 7 in 5 ft 7 in Intake Visit Reasons: medication concerns Allergies No Known Allergies Allergy (Verified 03/19/25 10:21) Medications ?Medication ?Instructions ?Recorded ?Confirmed ?Type cetirizine 10 mg tablet (24Hour 10 mg PO DAILY PRN allergy symptoms 03/19/25 03/19/25 History Allergy) cholecalciferol (vitamin D3) 25 25 mcg PO DAILY 03/19/25 03/19/25 History mcg (1,000 unit) capsule clonazepam 1 mg tablet (Klonopin) 1 mg PO QHS PRN sleep 03/19/25 04/04/25 History Held on 04/04/25. Instructions: not currently taking cyclobenzaprine 10 mg tablet 10 mg PO TID PRN muscle spasm 03/19/25 03/19/25 History dextroamphetamine-amphetamine ER 25 mg PO BID 03/19/25 03/19/25 History 25 mg 24hr capsule,extend release (Adderall XR) Held on 03/19/25. Instructions: has not been taking since January 2025 fluoxetine 10 mg capsule 10 mg PO DAILY 03/19/25 04/04/25 History hydroxyzine pamoate 25 mg capsule 25 mg PO 4X/DAY PRN PRN anxiety 03/19/25 03/19/25 History (Vistaril) ibuprofen 200 mg tablet 200 - 600 mg PO TID PRN pain 03/19/25 03/19/25 History oxcarbazepine 300 mg tablet 300 mg PO BID 03/19/25 03/19/25 History Held on 03/19/25. Instructions: MD Ordered ropinirole 0.5 mg tablet 0.5 - 1 mg PO QHS PRN restless 03/19/25 03/19/25 History Held on 03/19/25. leg(s) Instructions: does not currently have trazodone 50 mg tablet 50 mg PO QHS PRN sleep 03/19/25 03/19/25 History Held on 03/19/25. Instructions: MD Ordered ubrogepant 100 mg tablet (Ubrelvy) 100 mg PO DAILY PRN PRN migraine 03/19/25 03/19/25 History Held on 03/19/25. headache Instructions: does not currently have doxycycline hyclate 20 mg tablet 20 mg PO BID 04/04/25 04/04/25 History spironolactone 100 mg tablet 100 mg PO DAILY 04/04/25 04/04/25 History (Aldactone) spironolactone 50 mg tablet 50 mg PO DINNER 04/04/25 04/04/25 History (Aldactone) olanzapine 10 mg tablet See Rx Instructions .Route 04/19/25 Rx .COMPLEX #30 tabs HPI () History of Present Illness History provided by: patient Chief complaint: Foggy and hard time concentrating HPI: Cyndie Mueller is a 44y/o female with a history of bipolar 1 and PTSD who is seen today for follow up evaluation as part of IOP programming. Patient reports to still feeling very dumb with the use of olanzapine. Currently takign 5 mg in the morning and 10 mg at bedtime. Feels very indecisive and unable to make a decision. Describes very unmotivated at this time. Has been feeling down because of the side effects. Reports that she will not continue medications if current side effects are persistent. Sleep has been doing really well, and is likely oversleeping. Is taking some regular naps. Denies SI/HI or AVH. Review of systems () Constitutional Denies: fever(s), chills, change in weight or fatigue Eyes Denies: change in vision or blurry vision Ears, Nose, Mouth, Throat Denies: throat pain, neck pain or change in hearing Cardiovascular Denies: chest pain, palpitations or dyspnea Respiratory Denies: dyspnea, cough or wheezing Gastrointestinal Denies: abdominal pain, nausea, vomiting, diarrhea or constipation Genitourinary Denies: dysuria or urinary frequency Musculoskeletal Denies: back pain, neck pain, joint pain or muscle weakness Integumentary/Breast Denies: rash or new lesions Neurological Reports: confusion; Denies: headache(s) or dizziness Endocrine Denies: fatigue or excessive sweating Hematologic/Lymphatic Denies: easy bruising or easy bleeding Allergic/Immunologic Denies: wheezing Exam Mental Status Exam- Psych () Appearance casually dressed, adequately groomed and no apparent distress Attitude cooperative and calm Activity/Motor Behavior psychomotor slowing Speech soft Mood OK Affect restricted Thought Process other (More linear and goal oriented) Thought Content no delusions Suicidal Ideation none Homicidal Ideation none Attention intact Concentration other (Slightly repaired) Sensorium/Orientation awake and alert Memory/Cognition impaired (pe Self-report) Insight questionable Judgement fair Exam () Constitutional Documenting provider has reviewed patient's vital signs: yes Common normals: no acute distress, patient oriented x3 and alert General appearance: well developed Neuro Common normals: patient oriented x3 Sensorium/orientation: alert Gait (neuro): normal gait Assessment & Plan () Assessment & Plan (1) Bipolar disorder, current episode manic without psychotic features, unspecified: Plan: - Patient wishes to reduce medication therapy secondary to persistent side effects. We will reduce to 10 mg at night in an attempt to reduce medication burden while still allowing for overall psychiatric stability. Patient does have outpatient follow-up scheduled and was encouraged not to completely discontinue medication without establishing outpatient ?Patient was informed of the risk, benefits, and possible side effects of antipsychotics medications. Side effects of these medications can include but are not limited to orthostatic hypotension (low blood pressure), weight gain, metabolic side effects, extrapyramidal side effects, and tardive dyskinesia. If you notice any abnormal movements including involuntary movement of muscles of face, lips, torso or legs please contact the office immediately. Medications: New olanzapine 5mg in the AM, 10pm in the PM [address] Kitty Johnson MD olanzapine 10 mg at bedtime [address] Dwight Martell, DO On Hold clonazepam Hold Comment: not currently taking 1 mg PO QHS PRN sleep Jaclyn Vergara Charges/Coding Multi Select Codes Behavior Health Behavior Health EST Pt E/M: 17187 Est Pt Level III
--- NOTE | 2025-04-19 09:05 | BH.SGPN.GN ---
Behaviors/Verbalizations/Mental Status: [] Eye contact is good. Motor activity is appropriate. Appearance is casual. Speech is Appropriate. Mood is euthymic. Affect is full. Thoughts are linear and logical. No evidence of psychosis. Reviewed daily check in sheet and no reports of suicidal ideations or intent. Client Response/Progress/Benefit: [] Pt participated when prompted. Attentive. Daily symptom tracker notes no significant distress. Able to identify mental health wins and healthy habits. She continues to utilize daily healthy coping skills and self-care. Stressors include housing and future goals. Progress noted. Benefited from group support, encouragement, and feedback. Will continue in IOP to prevent decompensation/re-admission to psych unit, stabilize mood, and improve functioning Narrative Note: []
--- NOTE | 2025-04-19 10:15 | BH.SGPN.GN ---
Behaviors/Verbalizations/Mental Status: []Pt alert and oriented, neatly dressed and groomed. Eye contact good. Motor activity appropriate. Speech within normal limits. Affect congruent, mood fatigued. Thoughts linear, logical, no signs of hallucinations or delusions. Client Response/Progress/Benefit: []Pt participated during small group discussions. Attentive during psychoeducation about defense mechanisms. Showed engagement during small group discussions and helped group identify which defense mechanisms were maladaptive, adaptive, or ?somewhere in the nieto.? Pt worked with small group on identifying how each defense mechanism can impact mental health and gave examples. Pt stated she has gained awareness of her use of sublimation, denial, humor, and rationalization. Pt reported benefits from identifying examples of different defense mechanisms and normalizing why they are used. Seemed to benefit from gaining awareness about the different defense mechanisms. Pt to continue IOP tx to promote use of healthy coping skills, increase self-care practices, and improve self-compassion. Narrative Note: []
--- NOTE | 2025-04-19 11:15 | BH.SGPN.GN ---
Behaviors/Verbalizations/Mental Status: []Pt alert and oriented, casually dressed and groomed. Eye contact good. Motor activity appropriate. Speech within normal limits. Affect congruent, mood content. Thoughts linear, logical, no signs of hallucinations or delusions. Client Response/Progress/Benefit: [] Pt responded well to session, participating in activity and small group discussion. Group reviewed the rest of the defense mechanisms and discussed how these are adaptive, maladaptive, or somewhere in the nieto. Pt's defense mechanisms included sublimation, rationalization, and denial. Shared that these at times lead to things taking longer for her to see progress with. Pt listened to qual research manager teach different skills to help pt?s cope with or change their defense mechanisms. Pt appeared to benefit from gaining insight to the different defense mechanisms and learning coping skills. Shared wanting to begin practicing more awareness of when she is using these defense mechanisms. Pt will continue IOP tx to prevent decompensation, improve healthy communication skills, and increase self-confidence. Narrative Note: []
--- NOTE | 2025-04-22 09:05 | BH.SGPN.GN ---
Behaviors/Verbalizations/Mental Status: [] Eye contact is good. Motor activity is appropriate. Appearance is casual. Speech is Appropriate. Mood is anxious. Affect is congruent. Thoughts are linear and logical. No evidence of psychosis. Reviewed daily check in sheet and no reports of suicidal ideations or intent. Client Response/Progress/Benefit: [] Pt participated when prompted. Attentive. Limited distress noted on daily symptom tracker. Able to identify mental health wins and healthy habits. Continues to seek out social interaction. She lost her cell phone yesterday which caused significant distress and agitation. ? I felt like it was an insurmountable task? to figure out what to do. Struggled at first however utilized calming skills to stabilize emotions. Worked through significant stressor and didn?t shutdown or escalate. Progress noted. Benefited from group support, encouragement, and feedback. Will continue in IOP to prevent decompensation/re-admission to psych unit, improve functioning, and stabilize mood. Narrative Note: []
--- NOTE | 2025-04-22 10:10 | BH.SGPN.GN ---
Behaviors/Verbalizations/Mental Status: [] Client alert and oriented, casually dressed and groomed. Eye contact good. Motor activity appropriate. Speech within normal limits. Affect congruent, mood anxious. Thoughts linear, logical, no signs of hallucinations or delusions. Client Response/Progress/Benefit: [] Pt was an attentive and active participant, AEB taking notes and providing input in group discussion. Attentive during psychoeducation. Pt engaged during interactive discussion in which the group defined self-care and discussed its benefits. Group discussed barriers and benefits to self-care. Identified benefits as being more productive, feeling more grounded, feeling happier, decreased anxiety, better quality of life, and increased resilience. Pt participated in small groups where they worked to identify and challenged common self-care ?myths?. Benefited from increased awareness of self-care, its benefits, and the consequences of not utilizing self-care strategies. Will continue IOP tx to prevent decompensation, improve mood stability, and reinforce healthy coping skills.
--- NOTE | 2025-04-22 11:10 | BH.SGPN.GN ---
Behaviors/Verbalizations/Mental Status: []Client alert and oriented, casual appearance. Eye contact good. Motor activity appropriate. Speech within normal limits. Affect congruent, mood content. Thoughts linear, logical, no signs of hallucinations or delusions. Client Response/Progress/Benefit: [] Pt engaged participant AEB completing self-assessment worksheet and providing input throughout discussion. Pt completed worksheet identifying current self-care practices and what self-care activities Pt wants to start using. Pt selected spiritual self-care to begin practicing more consistently. Pt plans to do this by starting her mornings sitting outside. Appeared to benefit from completing the self-care evaluation and gaining insights into current self-care practices, as well as identifying areas in which Pt would like to improve upon. Pt will continue IOP tx to prevent decompensation, maintain mood stability, and increase assertive communication skills. Narrative Note: []
--- NOTE | 2025-04-23 09:00 | BH.SGPN.GN ---
Behaviors/Verbalizations/Mental Status: [] ?Eye contact is good. Motor activity is appropriate. Appearance is casual. Speech is Appropriate. Mood is content. Affect is congruent. Thoughts are linear and logical. No evidence of psychosis. Reviewed daily check in sheet and no reports of suicidal ideations or intent. Client Response/Progress/Benefit: [] ?Pt was an active participant in group discussions. Attentive. Did well to identify 2 mental health wins including managing get all of her information transferred over to a new phone after losing hers over the weekend. Noted managing the stress in doing so as well. Additional win expressed as being able to assert a boundary when her father was giving unsolicited advise. Expressed pride in doing so. Stressor noted as preparing for her upcoming trip to [place]. Progress noted. Benefited from group support, encouragement, and feedback. Will continue in IOP to prevent decompensation, promote mood stability, and increase healthy coping consistency. Narrative Note: []
--- NOTE | 2025-04-23 10:10 | BH.SGPN.GN ---
Behaviors/Verbalizations/Mental Status: [] Client alert and oriented, casual appearance. Eye contact good. Motor activity appropriate. Speech within normal limits. Affect constricted, mood anxious. Thoughts linear, logical, no signs of hallucinations or delusions. Client Response/Progress/Benefit: [] Pt receptive to session AEB contributing to small group discussion, as well as listening attentively to others, and taking notes. Worked with group to brainstorm the positive and negative aspects of stress on physical and mental health. Group did well to identify the benefits of stress as well as the impact of distress on performance, relationships, and mental health. Pt identified their personal top stressors as: Needing to move, finances, and wanting more independence. Client stated 1 her stressed or overflows it often leads to self-deprecating thoughts, lashing out at others, and feeling apathetic. Pt seemed to benefit from increased awareness of current stressors and impact stress has on mental health. Pt will continue IOP tx to maintain mood stability, challenge negative thoughts, and prevent decompensation. Narrative Note: []
--- NOTE | 2025-04-23 11:10 | BH.SGPN.GN ---
Behaviors/Verbalizations/Mental Status: []Eye contact is good. Motor activity is appropriate. Appearance is casual. Speech is Appropriate. Mood is euthymic. Affect is congruent. Thoughts are linear and logical. No evidence of psychosis. Client Response/Progress/Benefit: [] Pt was an attentive participant in group discussions and actively engaged during experiential activity, doing well to regulate their emotions throughout the activity and work with peers. Attentive during psychoeducation on the 4 A's (Avoid, adapt, alter, accept) of coping with stress. Shared that they would benefit most from practicing self-forgiveness for ways she coped with stressors in the past. Was able to identify the connection between the experiential activity and utilization of stress management skills. Benefited from increased awareness of stress management strategies. Pt will continue IOP to promote mood stability and reinforce healthy coping skills. ? Narrative Note: []
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
--- NOTE | 2025-04-24 09:05 | BH.SGPN.GN ---
Behaviors/Verbalizations/Mental Status: [] Eye contact is good. Motor activity is appropriate. Appearance is casual. Speech is Appropriate. Mood is euthymic. Affect is full. Thoughts are linear and logical. No evidence of psychosis. Reviewed daily check in sheet and no reports of suicidal ideations or intent. Client Response/Progress/Benefit: [] Pt participated at times during the group discussions. Attentive. Limited distress noted on daily symptom tracker. Shared with the group that today is set to discharge successfully from IOP today. Briefly discussed her progress in IOP as well as the strategies that have been most beneficial. Future-oriented and she discussed aftercare and future plans. Insight that she has been ?working through? stressors in her life and understands that IOP was just the start. Progress noted. Benefited from group support, encouragement, and feedback. Will be discharged today. Narrative Note: []
--- NOTE | 2025-04-24 11:10 | BH.SGPN.GN ---
Behaviors/Verbalizations/Mental Status: []Pt alert and oriented, neatly dressed and groomed. Eye contact good. Motor activity appropriate. Speech within normal limits. Affect congruent, mood euthymic. Thoughts linear, logical, no signs of hallucinations or delusions. Client Response/Progress/Benefit: [] Pt responded well to session, engaged in the experiential activity and attentive throughout group processing. Pt reported fear of failure has kept Pt from starting IOP and being authentic. Pt completed fear of failure worksheet and was able to identify thoughts and behaviors that reinforce personal fear of failure including unrealistic expectations and not asking for help. Pt participated in small group discussion regarding strategies to overcome fear of failure. Identified wanting to work on utilizing accepting the ups and downs and being patient. Appeared to benefit from increased knowledge of strategies to combat fear of failure and gaining self-awareness. Pt will discharge from IOP tx as pt has accomplished her tx goals and no longer meets criteria for IOP level of care. Narrative Note: []
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
== END 2025-04-24 12:15 | disposition home or self-care (01) ==
LOC: BHIOP 07:18
PROVIDERS: Referring Provider Internal Medicine; Visit Provider Internal Medicine
DX: F31.10 Bipolar disorder, current episode manic without psychotic features, unspecified (principal); F43.10 Post-traumatic stress disorder, unspecified
CPT/HCPCS: S9480; 90832; 90853

== ENCOUNTER → 2025-09-03 | Outpatient (CLI) | payer MEDICARE, SELFPAY ==
[2025-09-03 12:14] LABS: Hematocrit 42.1 % (37-47); Hemoglobin 14.1 g/dL (12.0-15.0); Immature Granulocytes Count 0.020 X10^3/uL (0.0-0.0); Mean Corp Hgb Conc 33.5 g/dL (32-36); Mean Corpuscular Volume 93.8 fL (81-99); Mean Platelet Vol. 10.0 fl (6.2-12.0); NRBC Flagged by Analyzer 0 % (0-5); Platelet Count 381 K/mm3 (150-450); RBC Distribution Width CV 12.4 % (11.6-14.6); RBC Distribution Width SD 42.8 fl (35.1-43.9); Red Blood Count 4.49 M/mm3 (4.2-5.4); White Blood Count 8.4 K/mm3 (4.4-11.0)
[2025-09-03 12:52] LABS: AST(SGOT) 18 U/L (<=31); Alanine Aminotransfer ALT/SGPT 14 U/L (<=34); Albumin, Serum 4.4 g/dL (3.5-5.0); Alkaline Phosphatase 59 U/L (35-104); Anion Gap 11 (5-15); BUN 14 mg/dL (4-19); BUN/Creat Ratio 18.2 RATIO (10-20); Calcium,Total 9.9 mg/dL (7.6-11.0); Carbon Dioxide 24.6 mmol/L (21.0-32.0); Chloride 99 mmol/L (98-108); Ferritin 169 ng/mL (22-378); Globulin 2.9 g/dL (2.2-4.2); Glucose 104 mg/dL (70-99); Iron 136 ug/dL (50-170); Iron Binding Capacity,Total 322 ug/dL (250-450); Iron Binding Capacity,Unsat 186 ug/dL (228-428); Potassium 5.0 mmol/L (3.3-5.1); Vitamin B12 446 pg/mL (180-914); Vitamin D,25 Hydroxy 39.3 ng/mL (30-100)
[2025-09-03 13:11] LABS: Cholesterol 223 mg/dL (<=200); Low Density Lipoprotein Calc. 123 mg/dL; Triglycerides 197 mg/dL; Very Low Density Lipoprotein 39 mg/dL (5-40); cholesterol:hdl ratio screen 3.38
== END | disposition home or self-care (01) ==
PROVIDERS: Referring Provider Nurse Practitioner Family; Visit Provider Nurse Practitioner Family
DX: Z13.1 Encounter for screening for diabetes mellitus (principal); Z13.220 Encounter for screening for lipoid disorders; E28.2 Polycystic ovarian syndrome; R53.82 Chronic fatigue, unspecified
CPT/HCPCS: 36415; 80053; 80061; 82306; 82607; 82728; 83036; 83540; 83550; 84439; 84443; 85025